=== PATIENT | female | born 1970 ===

== ENCOUNTER 2021-08-06 10:38 | Outpatient (CLI) | payer SELFPAY | END 2021-08-06 10:39 | disposition EMS.NT | LOC: EMS 10:38 | DX: S61.217A Laceration without foreign body of left little finger without damage to nail, initial encounter (principal); W25.XXXA Contact with sharp glass, initial encounter; Y92.009 Unspecified place in unspecified non-institutional (private) residence as the place of occurrence of the external cause ==